=== PATIENT | female | born 1955 | race Caucasian/White ===

== ENCOUNTER 2021-10-11 07:16 | Day surgery (SDC) | payer OTHER ==
[~2021-10-11] VITALS: Ht 154.9 cm; Wt 77.1 kg
[2021-10-11] MEDS ORDERED: fentaNYL citrate 0.05 MG/ML VIAL ONE (08:53)
[2021-10-11] MEDS ORDERED: LIDOCAINE 2% 100 MG/5 ML UJET TP ONE (08:53)
[2021-10-11] MEDS ORDERED: fentaNYL citrate 0.05 MG/ML VIAL IVP ONE (10:10)
== END 2021-10-11 09:30 | disposition home or self-care (01) ==
LOC: MOR 07:16 → MMU 07:16 → MOR 09:30
PROVIDERS: ATTEND Internal Medicine Gastroenterology
DX: Z12.11 Encounter for screening for malignant neoplasm of colon (principal); K57.30 Diverticulosis of large intestine without perforation or abscess without bleeding; K64.8 Other hemorrhoids; K59.00 Constipation, unspecified; K76.0 Fatty (change of) liver, not elsewhere classified; R14.0 Abdominal distension (gaseous); I10 Essential (primary) hypertension; E11.9 Type 2 diabetes mellitus without complications; E78.00 Pure hypercholesterolemia, unspecified; Z90.710 Acquired absence of both cervix and uterus; Z90.49 Acquired absence of other specified parts of digestive tract; Z79.84 Long term (current) use of oral hypoglycemic drugs; Z79.899 Other long term (current) drug therapy; Z20.822 Contact with and (suspected) exposure to COVID-19
CPT/HCPCS: 45378; 87426; J3010